=== PATIENT | female | born 1970 | race Caucasian/White ===

== ENCOUNTER 2019-10-07 04:12 | Emergency (ER) | payer SELFPAY ==
[~2019-10-07] VITALS: Ht 157.5 cm; Wt 56.8 kg
[~2019-10-07 04:12] MED LIST: IBUPROFEN600 MG PO; PERCOCET 5-3251 TAB PO
[2019-10-07 04:18] VITALS: Ht 157.5 cm; Wt 56.8 kg
[2019-10-07] MEDS ORDERED: ULTRAM50 MG PO (04:39)
[2019-10-07 05:09] VITALS: BP 115/74
== END 2019-10-07 05:09 | disposition home or self-care (01) ==
LOC: D.ER 04:12
DX: M54.9 Dorsalgia, unspecified (principal); Z95.0 Presence of cardiac pacemaker